=== PATIENT | male | born 1980 | race Two or more races ===

== ENCOUNTER → 2019-10-24 | Outpatient (CLI) | payer OTHER | END | disposition home or self-care (01) | LOC: ECT 12:21 | DX: F33.1 Major depressive disorder, recurrent, moderate (principal); F41.9 Anxiety disorder, unspecified; F41.0 Panic disorder [episodic paroxysmal anxiety]; F12.90 Cannabis use, unspecified, uncomplicated; Z81.8 Family history of other mental and behavioral disorders; Z96.642 Presence of left artificial hip joint ==

== ENCOUNTER 2019-11-16 06:29 | Outpatient (RCR) | payer OTHER ==
[~2019-11-16] VITALS: Ht 180.3 cm; Wt 91.6 kg
[2019-11-16] MEDS ORDERED: Methohexital Sodium Syr 100mg/10ml IVP ONE (06:30)
[2019-11-16] MEDS ORDERED: Glycopyrrolate 0.2mg/ml 1ml Vial ONE (06:30)
[2019-11-16] MEDS ORDERED: Succinylcholine 20mg/ml 10ml vial ONE (06:30)
[2019-11-16] MEDS ORDERED: NS 500ML ONE (06:30)
[2019-11-18] MEDS ORDERED: Midazolam 2mg/2ml Inj ONE (06:00)
[2019-11-18] MEDS ORDERED: Succinylcholine 20mg/ml 10ml vial ONE (06:00)
[2019-11-18] MEDS ORDERED: Methohexital Sodium Syr 100mg/10ml IVP ONE (06:00)
[2019-11-18] MEDS ORDERED: NS 500ML ONE (06:00)
[2019-11-18 10:13] VITALS: BP 165/88
[2019-11-18 10:18] VITALS: BP 140/78
[2019-11-18 10:23] VITALS: BP 142/74
[2019-11-18 10:28] VITALS: BP 138/67
[2019-11-18 12:12] VITALS: BP 144/90
[2019-11-21] MEDS ORDERED: Succinylcholine 20mg/ml 10ml vial ONE (06:00)
[2019-11-21] MEDS ORDERED: NS 500ML ONE (06:00)
[2019-11-21] MEDS ORDERED: Methohexital Sodium Syr 100mg/10ml IVP ONE (06:00)
[2019-11-21] MEDS ORDERED: Midazolam 2mg/2ml Inj ONE (06:00)
[2019-11-21] MEDS ORDERED: Glycopyrrolate 0.2mg/ml 1ml Vial ONE (06:00)
[2019-11-21 10:30] VITALS: BP 133/89
[2019-11-21 10:35] VITALS: BP 142/84
[2019-11-21 10:40] VITALS: BP 134/78
[2019-11-21 10:45] VITALS: BP 151/85
[2019-11-23] MEDS ORDERED: Methohexital Sodium Syr 100mg/10ml IVP ONE (06:00)
[2019-11-23] MEDS ORDERED: NS 500ML ONE (06:00)
[2019-11-23] MEDS ORDERED: Glycopyrrolate 0.2mg/ml 1ml Vial ONE (06:00)
[2019-11-23] MEDS ORDERED: Succinylcholine 20mg/ml 10ml vial ONE (06:00)
[2019-11-23] MEDS ORDERED: Midazolam 2mg/2ml Inj ONE (06:00)
[2019-11-23 10:53] VITALS: BP 129/87
[2019-11-23] MEDS ORDERED: Lidocaine 2% 100mg/5ml Carp IV PRN (11:09)
[2019-11-23] MEDS ORDERED: Midazolam 2mg/2ml Inj IVP PRN (11:09)
[2019-11-23] MEDS ORDERED: Atropine Sulfate 0.4mg/ml inj IVP PRN (11:09)
[2019-11-23 11:10] VITALS: BP 148/80
[2019-11-23 11:15] VITALS: BP 146/80
[2019-11-23 11:20] VITALS: BP 165/79
[2019-11-23 11:25] VITALS: BP 137/89
[2019-11-25] MEDS ORDERED: Methohexital Sodium Syr 100mg/10ml IVP ONE (06:00)
[2019-11-25] MEDS ORDERED: NS 500ML ONE (06:00)
[2019-11-25] MEDS ORDERED: Glycopyrrolate 0.2mg/ml 1ml Vial ONE (06:00)
[2019-11-25] MEDS ORDERED: Succinylcholine 20mg/ml 10ml vial ONE (06:00)
[2019-11-25 08:39] VITALS: BP 138/91
[2019-11-25 08:50] VITALS: BP 171/97
[2019-11-25 08:55] VITALS: BP 156/92
[2019-11-25 09:00] VITALS: BP 140/85
[2019-11-25 09:05] VITALS: BP 132/72
[2019-11-28 10:54] VITALS: BP 131/84
[2019-11-28 11:05] VITALS: BP 142/68
[2019-11-28 11:10] VITALS: BP 132/64
[2019-11-28 11:15] VITALS: BP 142/81
[2019-11-28 11:20] VITALS: BP 141/75
[2019-11-30] MEDS ORDERED: Methohexital Sodium Syr 100mg/10ml IVP ONE (06:00)
[2019-11-30] MEDS ORDERED: Glycopyrrolate 0.2mg/ml 1ml Vial ONE (06:00)
[2019-11-30] MEDS ORDERED: Succinylcholine 20mg/ml 10ml vial ONE (06:00)
[2019-11-30] MEDS ORDERED: NS 500ML ONE (06:00)
[2019-11-30 09:04] VITALS: BP 130/94
[2019-11-30 09:19] VITALS: BP 131/74
[2019-11-30 09:24] VITALS: BP 121/65
[2019-11-30 09:29] VITALS: BP 121/64
[2019-11-30 09:34] VITALS: BP 120/78
[2019-12-02] MEDS ORDERED: Glycopyrrolate 0.2mg/ml 1ml Vial ONE (06:00)
[2019-12-02] MEDS ORDERED: NS 500ML ONE (06:00)
[2019-12-02] MEDS ORDERED: Methohexital Sodium Syr 100mg/10ml IVP ONE (06:00)
[2019-12-02] MEDS ORDERED: Succinylcholine 20mg/ml 10ml vial ONE (06:00)
[2019-12-02 10:33] VITALS: BP 137/90
[2019-12-02 10:47] VITALS: BP 169/90
[2019-12-02 10:52] VITALS: BP 151/95
[2019-12-02 10:57] VITALS: BP 132/75
[2019-12-02 11:02] VITALS: BP 133/71
[2019-12-05] MEDS ORDERED: Methohexital Sodium Syr 100mg/10ml IVP ONE (06:00)
[2019-12-05] MEDS ORDERED: Glycopyrrolate 0.2mg/ml 1ml Vial ONE (06:00)
[2019-12-05] MEDS ORDERED: NS 500ML ONE (06:00)
[2019-12-05] MEDS ORDERED: Succinylcholine 20mg/ml 10ml vial ONE (06:00)
[2019-12-05 09:55] VITALS: BP 135/93
[2019-12-05] MEDS ORDERED: Lidocaine 2% 100mg/5ml Carp IV PRN (10:18)
[2019-12-05] MEDS ORDERED: Atropine Sulfate 0.4mg/ml inj IVP PRN (10:18)
[2019-12-05 10:20] VITALS: BP 133/78
[2019-12-05 10:25] VITALS: BP 135/84
[2019-12-05 10:30] VITALS: BP 138/88
[2019-12-05 10:35] VITALS: BP 134/76
[2019-12-07] MEDS ORDERED: Succinylcholine 20mg/ml 10ml vial ONE (06:00)
[2019-12-07] MEDS ORDERED: Methohexital Sodium Syr 100mg/10ml IVP ONE (06:00)
[2019-12-07] MEDS ORDERED: Glycopyrrolate 0.2mg/ml 1ml Vial ONE (06:00)
[2019-12-07] MEDS ORDERED: NS 500ML ONE (06:00)
[2019-12-07 10:43] VITALS: BP 132/91
[2019-12-07] MEDS ORDERED: Atropine Sulfate 0.4mg/ml inj IVP PRN (11:04)
[2019-12-07] MEDS ORDERED: Lidocaine 2% 100mg/5ml Carp IV PRN (11:04)
[2019-12-07 11:05] VITALS: BP 144/85
[2019-12-07 11:10] VITALS: BP 127/78
[2019-12-07 11:15] VITALS: BP 130/70
[2019-12-07 11:20] VITALS: BP 125/71
[2019-12-12] MEDS ORDERED: Methohexital Sodium Syr 100mg/10ml IVP ONE (09:00)
[2019-12-12] MEDS ORDERED: Succinylcholine 20mg/ml 10ml vial ONE (09:00)
[2019-12-12] MEDS ORDERED: NS 500ML ONE (09:00)
[2019-12-12] MEDS ORDERED: Glycopyrrolate 0.2mg/ml 1ml Vial ONE (09:00)
[2019-12-12 11:08] VITALS: BP 133/97
[2019-12-12] MEDS ORDERED: Atropine Sulfate 0.4mg/ml inj IVP PRN (11:34)
[2019-12-12] MEDS ORDERED: Lidocaine 2% 100mg/5ml Carp IV PRN (11:34)
--- NOTE | 2019-12-12 11:34 | NUR ---
Late Entry: After ECT treatment with psychiatrist and anesthesiologist in the treatment room, pt. vomited as he was getting ready to go to PACU. Report given to DOWEL PIN MAN after being transferred for recovery.
[2019-12-12 11:35] VITALS: BP 150/95
[2019-12-12 11:40] VITALS: BP 147/104
[2019-12-12 11:45] VITALS: BP 146/91
[2019-12-12 11:50] VITALS: BP 155/85
== END 2019-12-13 | disposition home or self-care (01) ==
LOC: ECT 06:29
DX: F33.1 Major depressive disorder, recurrent, moderate (principal)
CPT/HCPCS: 90870; J0330; J2250; J3360; J7040

== ENCOUNTER 2019-12-19 06:47 | Outpatient (RCR) | payer OTHER ==
[~2019-12-19] VITALS: Ht 180.3 cm; Wt 91.6 kg
[~2019-12-19 06:47] MED LIST: Glycopyrrolate 0.2mg/ml 1ml Vial ONE; Methohexital Sodium Syr 100mg/10ml IVP ONE; NS 500ML ONE; Succinylcholine 20mg/ml 10ml vial ONE
[2019-12-19] MEDS ORDERED: Succinylcholine 20mg/ml 10ml vial ONE (06:48)
[2019-12-19] MEDS ORDERED: Glycopyrrolate 0.2mg/ml 1ml Vial ONE (06:48)
[2019-12-19] MEDS ORDERED: NS 500ML ONE (06:48)
[2019-12-19] MEDS ORDERED: Methohexital Sodium Syr 100mg/10ml IVP ONE (06:48)
[2019-12-19 11:59] VITALS: BP 147/98
[2019-12-19] MEDS ORDERED: Atropine Sulfate 0.4mg/ml inj IVP PRN (12:19)
[2019-12-19] MEDS ORDERED: Lidocaine 2% 100mg/5ml Carp IV PRN (12:19)
[2019-12-19 12:20] VITALS: BP 145/80
[2019-12-19 12:25] VITALS: BP 132/76
[2019-12-19 12:30] VITALS: BP 134/80
[2019-12-19 12:35] VITALS: BP 133/78
[2019-12-23] MEDS ORDERED: Succinylcholine 20mg/ml 10ml vial ONE (06:00)
[2019-12-23] MEDS ORDERED: Methohexital Sodium Syr 100mg/10ml IVP ONE (06:00)
[2019-12-23] MEDS ORDERED: Glycopyrrolate 0.2mg/ml 1ml Vial ONE (06:00)
[2019-12-23] MEDS ORDERED: NS 500ML ONE (06:00)
[2019-12-23 10:17] VITALS: BP 138/87
[2019-12-23 10:24] VITALS: BP 128/91
[2019-12-23 10:37] VITALS: BP 139/76
[2019-12-23 10:42] VITALS: BP 129/86
[2019-12-23 10:47] VITALS: BP 126/78
[2019-12-23 10:52] VITALS: BP 120/81
[2020-01-02 09:41] VITALS: BP 145/88
[2020-01-02 09:53] VITALS: BP 146/80
[2020-01-02 09:58] VITALS: BP 121/68
[2020-01-02 10:03] VITALS: BP 135/80
[2020-01-02 10:08] VITALS: BP 144/87
== END 2020-01-13 | disposition home or self-care (01) ==
LOC: ECT 06:47
DX: F33.1 Major depressive disorder, recurrent, moderate (principal)
CPT/HCPCS: 90870; J0330; J3360; J7040

== ENCOUNTER 2020-01-16 05:59 | Outpatient (RCR) | payer OTHER ==
[~2020-01-16] VITALS: Ht 30.5 cm; Wt 0.5 kg
[2020-01-16] VITALS (7 sets, daily range): BP systolic 129–153; BP diastolic 72–100
[2020-01-16] MEDS ORDERED: Succinylcholine 20mg/ml 10ml vial ONE (06:00)
[2020-01-16] MEDS ORDERED: NS 500ML ONE (06:00)
[2020-01-16] MEDS ORDERED: Glycopyrrolate 0.2mg/ml 1ml Vial ONE (06:00)
[2020-01-16] MEDS ORDERED: Methohexital Sodium Syr 100mg/10ml IVP ONE (06:00)
[2020-01-16] MEDS ORDERED: Lidocaine 2% 100mg/5ml Carp IV PRN (08:29)
[2020-01-16] MEDS ORDERED: Atropine Sulfate 0.4mg/ml inj IVP PRN (08:29)
[2020-02-06] VITALS (7 sets, daily range): BP systolic 132–145; BP diastolic 69–88
[2020-02-06] MEDS ORDERED: Succinylcholine 20mg/ml 10ml vial ONE (08:00)
[2020-02-06] MEDS ORDERED: Methohexital Sodium Syr 100mg/10ml IVP ONE (08:00)
[2020-02-06] MEDS ORDERED: NS 500ML ONE (08:00)
[2020-02-06] MEDS ORDERED: Glycopyrrolate 0.2mg/ml 1ml Vial ONE (08:00)
[2020-02-06] MEDS ORDERED: Atropine Sulfate 0.4mg/ml inj IVP PRN (09:04)
== END 2020-02-13 | disposition home or self-care (01) ==
LOC: ECT 05:59
DX: F33.1 Major depressive disorder, recurrent, moderate (principal)
CPT/HCPCS: 90870; J0330; J3360; J7040

== ENCOUNTER 2020-03-05 05:33 | Outpatient (RCR) | payer OTHER ==
[2020-03-05] VITALS (7 sets, daily range): BP systolic 129–148; BP diastolic 64–97
[~2020-03-05] VITALS: Ht 180.3 cm; Wt 91.6 kg
[2020-03-05] MEDS ORDERED: Methohexita Syr 100mg/10ml IVP ONE (05:34)
[2020-03-05] MEDS ORDERED: NS 500ML ONE (05:34)
[2020-03-05] MEDS ORDERED: Glycopyrrolate 0.2mg/ml 1ml Vial ONE (05:34)
[2020-03-05] MEDS ORDERED: Succinylcholine 20mg/ml 10ml vial ONE (05:34)
[2020-03-05] MEDS ORDERED: Atropine Sulfate 0.4mg/ml inj IVP PRN (09:44)
== END 2020-03-14 | disposition home or self-care (01) ==
LOC: ECT 05:33
DX: F33.1 Major depressive disorder, recurrent, moderate (principal)
CPT/HCPCS: 90870; J0330; J3360; J7040

== ENCOUNTER 2020-04-02 05:53 | Outpatient (RCR) | payer OTHER ==
[2020-04-02] VITALS (7 sets, daily range): BP systolic 126–142; BP diastolic 71–96
[~2020-04-02] VITALS: Ht 180.3 cm; Wt 91.6 kg
[2020-04-02] MEDS ORDERED: NS 500ML ONE (05:54)
[2020-04-02] MEDS ORDERED: Succinylcholine 20mg/ml 10ml vial ONE (05:54)
[2020-04-02] MEDS ORDERED: Glycopyrrolate 0.2mg/ml 1ml Vial ONE (05:54)
[2020-04-02] MEDS ORDERED: Methohexital Sodium Syr 100mg/10ml IVP ONE (05:54)
== END 2020-04-14 | disposition home or self-care (01) ==
LOC: ECT 05:53
DX: F33.1 Major depressive disorder, recurrent, moderate (principal)
CPT/HCPCS: 90870; J0330; J3360; J7040

== ENCOUNTER 2020-05-04 04:34 | Outpatient (RCR) | payer OTHER ==
[~2020-05-04] VITALS: Ht 180.3 cm; Wt 91.6 kg
[2020-05-04] VITALS (8 sets, daily range): BP systolic 120–148; BP diastolic 69–96
[2020-05-04] MEDS ORDERED: NS 500ML ONE (04:35)
[2020-05-04] MEDS ORDERED: Methohexita Syr 100mg/10ml IVP ONE (04:35)
[2020-05-04] MEDS ORDERED: Glycopyrrolate 0.2mg/ml 1ml Vial ONE (04:35)
[2020-05-04] MEDS ORDERED: Succinylcholine 20mg/ml 10ml vial ONE (04:35)
== END 2020-05-14 | disposition home or self-care (01) ==
LOC: ECT 04:34
DX: F33.1 Major depressive disorder, recurrent, moderate (principal)
CPT/HCPCS: 90870; J0330; J3360; J7040

== ENCOUNTER 2020-06-01 06:06 | Outpatient (RCR) | payer OTHER ==
[2020-05-04 09:13] VITALS: BP 125/77
== END 2020-06-14 | disposition home or self-care (01) ==
LOC: ECT 06:06
DX: Z53.9 Procedure and treatment not carried out, unspecified reason (principal)

== ENCOUNTER 2020-07-27 05:42 | Outpatient (RCR) | payer OTHER ==
[2020-07-27] VITALS (7 sets, daily range): BP systolic 127–152; BP diastolic 83–104
[~2020-07-27] VITALS: Ht 180.3 cm; Wt 91.6 kg
[2020-07-27] MEDS ORDERED: Glycopyrrolate 0.2mg/ml 1ml Vial ONE (05:43)
[2020-07-27] MEDS ORDERED: Succinylcholine 20mg/ml 10ml vial ONE (05:43)
[2020-07-27] MEDS ORDERED: NS 500ML ONE (05:43)
[2020-07-27] MEDS ORDERED: Methohexita Syr 100mg/10ml IVP ONE (05:43)
== END 2020-08-12 | disposition home or self-care (01) ==
LOC: ECT 05:42
DX: F33.1 Major depressive disorder, recurrent, moderate (principal)
CPT/HCPCS: 90870; J0330; J3360; J7040